=== PATIENT | female | born 1980 | race African-American/Black ===

== ENCOUNTER → 2017-03-16 | Outpatient (CLI) | payer OTHER ==
[~2017-03-16] MED LIST: ALBU2.5V11 NEB; ASPI-650 PO; ATOR20TA PO; FAMO20TA7 PO; HYDR-3138 PO; LISI5TAB PO; METO25TA2 PO; ONDA4TAB10 PO; TRAM-28 PO
[2017-03-16 12:41] LABS: BLOOD UREA NITROGEN 9 mg/dL (7-18)
[2017-03-16 12:47] LABS: ASPARTATE AMINO TRANSFERASE 19 U/L (15-37)
== END | disposition home or self-care (01) ==
LOC: LAB 10:23
PROVIDERS: ATTEND Internal Medicine Cardiovascular Disease
DX: E87.6 Hypokalemia (principal); I42.9 Cardiomyopathy, unspecified; I45.81 Long QT syndrome; F10.10 Alcohol abuse, uncomplicated; F17.200 Nicotine dependence, unspecified, uncomplicated
CPT/HCPCS: 36415; 80053; 85025

== ENCOUNTER 2017-04-16 23:28 | Emergency (ER) | payer OTHER ==
[~2017-04-16] VITALS: Ht 180.3 cm; Wt 55.9 kg
[~2017-04-16 23:28] MED LIST changes: -HYDR-3138 PO; +HYDR-3237 PO; -TRAM-28 PO; +TRAM-47 PO
[2017-04-17] MEDS ORDERED: ONDANSETRON 2MG/ML, 2ML IVPush ONE
[2017-04-17] MEDS ORDERED: MAALOX/HYOSCYAMINE/LIDOCAINE 45 ML BTL PO ONE
[2017-04-17] MEDS ORDERED: SODIUM CHLORIDE FLUSH 10ML SYR IVF ONE
[2017-04-17] MEDS ORDERED: METOCLOPRAMIDE 5 MG/ML, 2ML ONE (00:06)
[2017-04-17] MEDS ORDERED: ONDANSETRON 2MG/ML, 2ML ONE (00:07)
[2017-04-17] MEDS ORDERED: MAALOX/HYOSCYAMINE/LIDOCAINE 45 ML BTL ONE (00:07)
[2017-04-17 00:13] LABS: HEMATOCRIT 38.6 % (34.6-47.8); WHITE BLOOD COUNT 5.8 x10^3/uL (3.4-10)
[2017-04-17 00:21] LABS: BLOOD UREA NITROGEN 4 mg/dL (7-18)
[2017-04-17 00:22] LABS: ASPARTATE AMINO TRANSFERASE 21 U/L (15-37)
[2017-04-17] MEDS ORDERED: METOCLOPRAMIDE 5 MG/ML, 2ML IVPush ONE (00:30)
[2017-04-17] MEDS ORDERED: SODIUM CHLORIDE 0.9% 1,000ML IVBOLUS ONE ×2 (01:30)
[2017-04-17 02:15] VITALS: BP 111/72
== END 2017-04-17 02:52 | disposition home or self-care (01) ==
LOC: ED 23:59
DX: K52.9 Noninfective gastroenteritis and colitis, unspecified (principal)
CPT/HCPCS: 36415; 80053; 83690; 84703; 85025; 96361; 96374; 96375; 99285; J2405; J2765; J7030